=== PATIENT | male | born 1935 | race Caucasian/White ===

== ENCOUNTER 2017-10-28 05:48 | Emergency (ER) | payer MEDICARE, BC ==
[2017-10-28] MEDS ORDERED: methylPREDNISolone Sodium Succinate 125 MG/2 ML SDV IVPUSH STA (06:05)
--- NOTE | 2017-10-28 06:06 | EDM.PDOC ---
ED HPI GENERAL MEDICAL PROBLEM - General Stated Complaint: TROUBLE BREATHING Time Seen by Provider: 10/28/17 05:48 Source of Information: Reports: Patient, Family History Limitations: Reports: Respiratory Distress - History of Present Illness INITIAL COMMENTS - FREE TEXT/NARRATIVE: 82 y.o.w.m with a h/o COPD quit tobacco use 2010, came to the ed because of rapid change to the worse of his SOB. Pt can walk only across the hallway, then he kelley sto sit down to catch the breath. I was never intubated, he has a breathing machine at home and is using spiriva ihalers as well. Pt was walking only about 8 feet in the ed and his pulse ox dropped to 84% from 91% pulse ox at rest. No C/p no N/V/D or any other acute medical issues. BP 152/62 RR 28 Pulse ox 92% on RA temp 37.1 pulse 112 Onset: Gradual Onset Date: 10/24/17 Onset Time: 07:00 Duration: Day(s):, Getting Worse Location: Reports: Chest Quality: Reports: Same as Previous Episode Severity: Moderate Improves with: Reports: Medication, Rest Worsens with: Reports: Movement Context: Reports: Other (H/O COPD) Associated Symptoms: Reports: Cough (occ, nonproductive) - Related Data Allergies Allergy/AdvReac Type Severity Reaction Status Date / Time No Known Allergies Allergy Verified 10/28/17 06:51 Home Meds: Home Meds Albuterol [Proventil Neb Soln] 1 ampule INH QID PRN 10/28/17 [History] Aspirin 325 mg PO Q48H 10/28/17 [History] Brimonidine [Alphagan 0.2% Ophth Soln] 1 drop EYERT BID 10/28/17 [History] Latanoprost 1 drop EYERT BID 10/28/17 [History] predniSONE 20 mg PO WITHBREAKFAST #4 tab 10/28/17 [Rx] ED ROS GENERAL - Review of Systems Review Of Systems: See Below Constitutional: Reports: No Symptoms, Weakness HEENT: Reports: No Symptoms Respiratory: Reports: Shortness of Breath, Cough (occ) Cardiovascular: Reports: No Symptoms Endocrine: Reports: No Symptoms GI/Abdominal: Reports: No Symptoms, Other (abd. wall hernia, old) : Reports: No Symptoms Musculoskeletal: Reports: No Symptoms Skin: Reports: No Symptoms Neurological: Reports: No Symptoms Psychiatric: Reports: No Symptoms Hematologic/Lymphatic: Reports: No Symptoms Immunologic: Reports: No Symptoms ED EXAM, GENERAL - Physical Exam Exam: See Below Exam Limited By: Respiratory Distress General Appearance: Alert, WD/WN, Moderate Distress Eye Exam: Bilateral Eye: Normal Inspection Ears: Normal External Exam, Normal Canal Ear Exam: Bilateral Ear: Auricle Normal Nose: Normal Inspection, Normal Mucosa, No Blood Throat/Mouth: Normal Lips, Normal Voice, No Airway Compromise Head: Atraumatic, Normocephalic Neck: Normal Inspection, Supple, Non-Tender, Full Range of Motion Respiratory/Chest: Respiratory Distress, Decreased Breath Sounds, Other (Pulse ox drops to 84 when walking 8 feet) Cardiovascular: Normal Peripheral Pulses, Regular Rate, Rhythm, No Edema Peripheral Pulses: 1+: Brachial (L) GI/Abdominal: Normal Bowel Sounds, Soft, Non-Tender, Other (Abd. wall hernia, old) (Male) Exam: Hernia (abd. wall) Rectal (Males) Exam: Deferred Back Exam: Normal Inspection, Full Range of Motion Extremities: Normal Inspection, Normal Range of Motion, Non-Tender, No Pedal Edema Neurological: Alert, Oriented, CN II-XII Intact, Normal Cognition Psychiatric: Normal Affect, Normal Mood Skin Exam: Warm, Dry, Intact, Normal Color, No Rash Lymphatic: No Adenopathy Course - Vital Signs Text/Narrative:: 82 y.o.w.m with a h/o COPD quit tobacco use 2010, came to the ed because of rapid change to the worse of his SOB. Pt can walk only across the hallway, then he kelley sto sit down to catch the breath. I was never intubated, he has a breathing machine at home and is using spiriva ihalers as well. Pt was walking only about 8 feet in the ed and his pulse ox dropped to 84% from 91% pulse ox at rest. No C/p no N/V/D or any other acute medical issues. BP 152/62 RR 28 Pulse ox 92% on RA temp 37.1 pulse 112 PE: 82 y.o.w.m with COPD came to the ED with SOB Imaging: CXR: COPD Impression: COPD exacerbation Tx: Solu Medrol, Duoneb, Albuterol NebsX2 Reexam: Mild improvement. Pt refused furtherTx, refused admission and requested to be D/C'd Plan: D/C with instructions Last Recorded V/S: Last Vital Signs Temp 37.2 C 10/28/17 08:40 Pulse 106 H 10/28/17 08:40 Resp 20 10/28/17 08:40 BP 141/77 H 10/28/17 08:40 Pulse Ox 93 L 10/28/17 08:40 - Orders/Labs/Meds Orders: Active Orders 24 hr Category Date Time Status RT Aerosol Therapy [RC] ASDIRECTED Care 10/28/17 06:14 Active RT Aerosol Therapy [RC] ASDIRECTED Care 10/28/17 07:04 Active RT Aerosol Therapy [RC] ASDIRECTED Care 10/28/17 07:38 Active Chest 2V [CR] Stat Exams 10/28/17 06:44 Taken Meds: Medications Discontinued Medications Generic Name Dose Route Start Last Admin Trade Name Freq PRN Reason Stop Dose Admin Albuterol 2.5 mg 10/28/17 07:03 10/28/17 07[facility] [place] [facility] 07:04 2.5 mg ONETIME ONE Administration Albuterol 2.5 mg 10/28/17 07:38 10/28/17 07:52 Proventil Neb Soln [facility] 10/28/17 07:39 2.5 mg ONETIME ONE Administration Albuterol 2.5 mg 10/28/17 07:51 10/28/17 08:55 Proventil Neb Soln [facility] 10/28/17 07:52 Not Given ONETIME ONE Albuterol/Ipratropium 3 ml 10/28/17 06:14 10/28/17 06:21 Duoneb 3.0-0.5 Mg/3 Ml [facility] 10/28/17 06:15 3 ml ONETIME ONE Administration Ketorolac Tromethamine 15 mg 10/28/17 07:45 10/28/17 07:52 Toradol IVPUSH 10/28/17 07:46 15 mg ONETIME ONE Administration Methylprednisolone Sodium Succinate 125 mg 10/28/17 06:05 10/28/17 06:15 Solu-Medrol IVPUSH 10/28/17 06:06 125 mg ONETIME STA Administration Sodium Chloride 10 ml 10/28/17 06:19 10/28/17 07:58 Saline Flush FLUSH 10 ml ASDIRECTED PRN Administration Keep Vein Open Departure - Departure Time of Disposition: 08:35 Disposition: Home, Self-Care 01 Condition: Good, Fair 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 Qualifiers: Emphysema type: unspecified Qualified Code(s): J43.9 - Emphysema, unspecified - Discharge Information Prescriptions: predniSONE 20 mg PO WITHBREAKFAST #4 tab Instructions: Chronic Obstructive Pulmonary Disease, [id number], Prednisone tablets Referrals: PCP,Unknown [Ordering Only Provider] - Forms: ED Department Discharge Additional Instructions: Please continue to use your inhalers, take prednison as recommended, please f/u with your PMD in next 1-2 days, please come back if your symptoms get worse acutely - My Orders Last 24 Hours: My Active Orders 10/28/17 06:14 RT Aerosol Therapy [RC] ASDIRECTED 10/28/17 06:44 Chest 2V [CR] Stat 10/28/17 07:04 RT Aerosol Therapy [RC] ASDIRECTED 10/28/17 07:38 RT Aerosol Therapy [RC] ASDIRECTED - Assessment/Plan Last 24 Hours: My Active Orders 10/28/17 06:14 RT Aerosol Therapy [RC] ASDIRECTED 10/28/17 06:44 Chest 2V [CR] Stat 10/28/17 07:04 RT Aerosol Therapy [RC] ASDIRECTED 10/28/17 07:38 RT Aerosol Therapy [RC] ASDIRECTED
[2017-10-28] MEDS ORDERED: Albuterol/Ipratropium 3.0-0.5 MG/3 ML Neb Soln NEB ONE (06:14)
[2017-10-28] MEDS: Sodium Chloride 0.9% 10 ML Syringe FLUSH PRN ×2 (06:19→07:58)
[2017-10-28] MEDS ORDERED: Albuterol 0.083% 2.5 MG/3 ML Neb Soln NEB ONE ×3 (07:03→07:51)
[2017-10-28] MEDS ORDERED: Ketorolac 30 MG/ML SDV IVPUSH ONE (07:45)
--- NOTE | 2017-10-28 10:32 | CR ---
INDICATION: Short of breath. CHEST: Two PA views and a lateral view of the chest were obtained 10/28/2017 - no comparisons. Heart is normal in size and shape. The aorta is slightly tortuous with calcification in the arch. Somewhat diminished bone density may be present, raising question of osteoporosis or osteomalacia - correlate clinically. Hypertrophic degenerative changes are noted with a flowing appearance anteriorly, suggesting DISH. A minimal dextroconvex scoliosis of the upper middle thoracic spine is also noted. Overlying EKG leads are noted. Flattened diaphragm leaves, hyperaeration, and slightly prominent AP diameter would all suggest COPD, along with interdigitation of the right hemidiaphragm leaf. An active infiltrate or effusion was not identified. No evidence of CHF is seen. IMPRESSION: 1. No definite acute process. 2. COPD. 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 MTDD
== END 2017-10-28 08:50 | disposition home or self-care (01) ==
LOC: FB.ED 05:48
DX: J44.1 Chronic obstructive pulmonary disease with (acute) exacerbation (principal); Z79.82 Long term (current) use of aspirin; Z87.891 Personal history of nicotine dependence
CPT/HCPCS: 71046; 94640; 96374; 96375; 99284; J1885; J2930; J7050; J7620

== ENCOUNTER 2022-01-01 09:43 | Day surgery (SDC) | payer MEDICARE, BC ==
[~2022-01-01 09:43] MED LIST: Lactated Ringers 1,000 ML IV PRN; Sodium Chloride 0.9% 10 ML Syringe FLUSH PRN
[2022-01-01] MEDS ORDERED: Midazolam 1 MG/ML 2 ML SDV IV ONE (09:44)
[2022-01-01] MEDS ORDERED: fentaNYL 100 MCG/2 ML SDV IV ONE (09:44)
[2022-01-01] MEDS ORDERED: acetaZOLAMIDE 500 MG Cap.ER PO ONE (11:30)
== END 2022-01-01 12:20 | disposition home or self-care (01) ==
LOC: FB.SDS 09:43
PROVIDERS: ATTEND Ophthalmology
DX: H25.813 Combined forms of age-related cataract, bilateral (principal); H40.1111 Primary open-angle glaucoma, right eye, mild stage; H40.1112 Primary open-angle glaucoma, right eye, moderate stage; H35.3132 Nonexudative age-related macular degeneration, bilateral, intermediate dry stage; H43.813 Vitreous degeneration, bilateral; H52.03 Hypermetropia, bilateral; H52.223 Regular astigmatism, bilateral; G89.29 Other chronic pain; M25.562 Pain in left knee; L57.0 Actinic keratosis; I10 Essential (primary) hypertension; J43.8 Other emphysema; Z79.899 Other long term (current) drug therapy; Z87.891 Personal history of nicotine dependence
CPT/HCPCS: 00142; 66991; A9270; C1783; J2250; J3010; V2632

== ENCOUNTER 2022-01-15 09:13 | Day surgery (SDC) | payer MEDICARE, BC ==
[2022-01-15] MEDS ORDERED: fentaNYL 100 MCG/2 ML SDV IV ONE (09:14)
[2022-01-15] MEDS ORDERED: Midazolam 1 MG/ML 2 ML SDV IV ONE (09:14)
[2022-01-15] MEDS ORDERED: Sodium Chloride 0.9% 10 ML Syringe IV ONE (09:14)
[2022-01-15] MEDS ORDERED: acetaZOLAMIDE 500 MG Cap.ER PO ONE (11:00)
== END 2022-01-15 12:10 | disposition home or self-care (01) ==
LOC: FB.SDS 09:13
PROVIDERS: ATTEND Ophthalmology
DX: H25.813 Combined forms of age-related cataract, bilateral (principal); H40.1111 Primary open-angle glaucoma, right eye, mild stage; H40.1122 Primary open-angle glaucoma, left eye, moderate stage; H35.3132 Nonexudative age-related macular degeneration, bilateral, intermediate dry stage; H43.813 Vitreous degeneration, bilateral; H52.03 Hypermetropia, bilateral; H52.223 Regular astigmatism, bilateral; I10 Essential (primary) hypertension; L57.0 Actinic keratosis; J44.9 Chronic obstructive pulmonary disease, unspecified; Z79.899 Other long term (current) drug therapy; Z98.890 Other specified postprocedural states; Z87.891 Personal history of nicotine dependence
CPT/HCPCS: 00142-QZ; A9270-GY; C1783; J2250; J3010; J3490; V2632

== ENCOUNTER 2022-09-24 23:50 | Emergency (ER) | payer MEDICARE, BC ==
[2022-09-25] MEDS ORDERED: predniSONE 20 MG Tab PO STA (08:00)
[2022-09-25] MEDS ORDERED: Albuterol/Ipratropium 3.0-0.5 MG/3 ML Neb Soln NEB ONE (08:00)
== END 2022-09-25 10:35 | disposition home or self-care (01) ==
LOC: FB.ED 23:50
DX: J44.9 Chronic obstructive pulmonary disease, unspecified (principal); Z99.81 Dependence on supplemental oxygen
CPT/HCPCS: 71045; 99283; J7512; J7620

== ENCOUNTER 2022-10-07 10:53 | Inpatient (IN) | payer MEDICARE, BC ==
[2022-10-07] MEDS ORDERED: Sodium Chloride 0.9% 10 ML Syringe FLUSH PRN (11:35)
[2022-10-07 12:16] LABS: BASOPHILS ABSOLUTE AUTO 0.1 x10-3/uL (0.0-0.3); BASOPHILS PERCENT AUTO 0.5 % (0.3-3.8); EOSINOPHILS ABSOLUTE AUTO 0.3 x10-3/uL (0.0-0.6); EOSINOPHILS PERCENT AUTO 2.3 % (0.1-6.8); HEMOGLOBIN 14.4 g/dL (12.9-17.7); LYMPHOCYTES ABSOLUTE AUTO 1.1 x10-3/uL (0.5-4.5); LYMPHOCYTES PERCENT AUTO 7.8 % (15.8-45.3); MEAN CORPUSCULAR HEMOGLOBIN 32.4 pg (27.0-33.3); MEAN CORPUSCULAR HGB CONC 33.4 g/dL (28.7-35.3); MONOCYTES ABSOLUTE AUTO 0.7 x10-3/uL (0.0-1.2); MONOCYTES PERCENT AUTO 5.3 % (5.5-15.2); NEUTROPHILS ABSOLUTE AUTO 11.5 x10-3/uL (1.7-6.9); NEUTROPHILS PERCENT AUTO 84.1 % (40.3-71.8); PLATELET COUNT,PLT 341 x10(3)uL (117-477); RED BLOOD CELL COUNT 4.44 x10(6)uL (3.90-5.90); RED CELL DISTRIBUTION WIDTH 13.9 % (12.4-15.0); WHITE BLOOD CELL COUNT,WBC 13.7 x10-3/uL (3.2-10.1)
[2022-10-07 12:23] LABS: BLOOD UREA NITROGEN,BUN 40 mg/dL (7-18); BUN/CREATININE RATIO 23.5 (9-20); CALCIUM 9.5 mg/dL (8.6-10.2); CARBON DIOXIDE,CO2 31 mmol/L (21-32); CHLORIDE,CL 103 mmol/L (100-110); CREATININE 1.7 mg/dL (0.70-1.30); ESTIMATED GFR 39 mL/min (>60); GLUCOSE RANDOM 109 mg/dL (80-116); POTASSIUM,K 4.5 mmol/L (3.5-5.3); SODIUM,NA 141 mmol/L (135-145)
[2022-10-07 12:28] LABS: A/G RATIO 0.7; ALANINE AMINOTRANSFERASE,ALT 23 U/L (12-36); ALBUMIN 2.7 g/dL (3.2-4.6); ALKALINE PHOSPHATASE 122 IU/L (56-112); ASPARTATE AMNIOTRANSFERASE,AST 19 IU/L (5-25); BILIRUBIN TOTAL 0.5 mg/dL (0.1-1.3); PROTEIN TOTAL,TP 6.6 g/dL (6.0-8.0)
[2022-10-07 12:30] LABS: LACTIC ACID 0.5 mmol/L (0.4-2.0)
[2022-10-07] MEDS ORDERED: cefTRIAXone 2 GM Vial IVPUSH ONE (13:40)
[2022-10-07] MEDS ORDERED: Sodium Chloride 0.9% 1,000 ML IV SCH (14:00)
[2022-10-07] MEDS ORDERED: Iopamidol 755 Mg/ML 100 ML Bottle IV ONE (14:17)
[2022-10-07] MEDS ORDERED: Albuterol 0.083% 2.5 MG/3 ML Neb Soln INH PRN (15:54)
[2022-10-07] MEDS ORDERED: Albuterol 6.7 GM Inhaler INH PRN (16:19)
[2022-10-07] MEDS ORDERED: Enoxaparin 30 MG/0.3 ML Syringe SUBCUT SCH (17:00)
[2022-10-07] MEDS ORDERED: ceFAZolin 2 GM in Sodium Chloride 0.9% 50 ML IV SCH (17:00)
[2022-10-07] MEDS: Acetaminophen 325 MG Tab PO SCH ×2 (17:47→21:44)
[2022-10-07] MEDS: ceFAZolin 1 GM Vial IVPUSH SCH (17:48)
[2022-10-07] MEDS: Sodium Chloride 0.9% 10 ML Syringe FLUSH PRN (17:48)
[2022-10-07] MEDS: Budesonide 0.5 MG/2 ML Neb Susp INH SCH (21:33)
[2022-10-07] MEDS: Tiotropium Bromide 4 GM Inhalation Spray (2.5mcg/1 dose; 10 doses) INH SCH (21:35)
[2022-10-07] MEDS: Melatonin 3 MG Tab PO SCH (21:37)
[2022-10-08] MEDS: Acetaminophen 325 MG Tab PO PRN (03:00)
[2022-10-08] MEDS: ceFAZolin 1 GM Vial IVPUSH SCH ×2 (04:30→17:16)
[2022-10-08] MEDS: Sodium Chloride 0.9% 10 ML Syringe FLUSH PRN ×4 (04:35→17:15)
[2022-10-08 06:33] LABS: BASOPHILS ABSOLUTE AUTO 0.1 x10-3/uL (0.0-0.3); BASOPHILS PERCENT AUTO 0.6 % (0.3-3.8); EOSINOPHILS ABSOLUTE AUTO 0.2 x10-3/uL (0.0-0.6); EOSINOPHILS PERCENT AUTO 1.8 % (0.1-6.8); HEMATOCRIT 37.9 % (38.3-50.1); HEMOGLOBIN 12.4 g/dL (12.9-17.7); LYMPHOCYTES ABSOLUTE AUTO 0.9 x10-3/uL (0.5-4.5); LYMPHOCYTES PERCENT AUTO 6.8 % (15.8-45.3); MEAN CORPUSCULAR HGB CONC 32.8 g/dL (28.7-35.3); MEAN CORPUSCULAR VOLUME 97.6 fL (80.8-98.7); MEAN PLATELET VOLUME 7.1 fL (6.7-11.0); MONOCYTES ABSOLUTE AUTO 0.9 x10-3/uL (0.0-1.2); MONOCYTES PERCENT AUTO 6.7 % (5.5-15.2); NEUTROPHILS ABSOLUTE AUTO 10.8 x10-3/uL (1.7-6.9); NEUTROPHILS PERCENT AUTO 84.1 % (40.3-71.8); PLATELET COUNT,PLT 296 x10(3)uL (117-477); RED BLOOD CELL COUNT 3.88 x10(6)uL (3.90-5.90); RED CELL DISTRIBUTION WIDTH 13.5 % (12.4-15.0); WHITE BLOOD CELL COUNT,WBC 12.8 x10-3/uL (3.2-10.1)
[2022-10-08 06:37] LABS: BLOOD UREA NITROGEN,BUN 37 mg/dL (7-18); BUN/CREATININE RATIO 21.8 (9-20); CARBON DIOXIDE,CO2 31 mmol/L (21-32); CHLORIDE,CL 106 mmol/L (100-110); CREATININE 1.7 mg/dL (0.70-1.30); EST CRCL DRUG DOSING (CG) 27.13 mL/min; ESTIMATED GFR 39 mL/min (>60); GLUCOSE RANDOM 87 mg/dL (80-116); POTASSIUM,K 4.1 mmol/L (3.5-5.3); SODIUM,NA 143 mmol/L (135-145)
[2022-10-08] MEDS: Budesonide 0.5 MG/2 ML Neb Susp INH SCH ×2 (08:26→21:04)
[2022-10-08] MEDS: Multivitamin Tab PO SCH (08:26)
[2022-10-08] MEDS: Ascorbic Acid 500 MG Tab PO SCH (08:27)
[2022-10-08] MEDS: Cholecalciferol (Vitamin D3) 25 MCG Tab PO SCH (08:28)
[2022-10-08] MEDS: Acetaminophen 325 MG Tab PO SCH ×4 (08:29→21:05)
[2022-10-08] MEDS ORDERED: predniSONE 5 MG Tab PO SCH (09:00)
[2022-10-08] MEDS: Dexamethasone 4 MG Tab PO SCH (10:28)
[2022-10-08] MEDS ORDERED: Apixaban 5 MG Tab PO SCH ×2 (11:30)
[2022-10-08] MEDS: Sodium Chloride 0.9% 1,000 ML IV SCH (12:27)
[2022-10-08] MEDS ORDERED: Enoxaparin 30 MG/0.3 ML Syringe SUBCUT SCH (17:00)
[2022-10-08] MEDS: Melatonin 3 MG Tab PO SCH (21:04)
[2022-10-08] MEDS: Tiotropium Bromide 4 GM Inhalation Spray (2.5mcg/1 dose; 10 doses) INH SCH (21:05)
[2022-10-09] MEDS: Sodium Chloride 0.9% 1,000 ML IV SCH ×2 (01:35→18:35)
[2022-10-09] MEDS: ceFAZolin 1 GM Vial IVPUSH SCH (04:15)
[2022-10-09 06:22] LABS: BASOPHILS PERCENT AUTO 0.4 % (0.3-3.8); EOSINOPHILS PERCENT AUTO 0.5 % (0.1-6.8); HEMATOCRIT 35.3 % (38.3-50.1); HEMOGLOBIN 11.7 g/dL (12.9-17.7); LYMPHOCYTES ABSOLUTE AUTO 0.8 x10-3/uL (0.5-4.5); LYMPHOCYTES PERCENT AUTO 7.8 % (15.8-45.3); MEAN CORPUSCULAR HEMOGLOBIN 32.4 pg (27.0-33.3); MEAN CORPUSCULAR HGB CONC 33.2 g/dL (28.7-35.3); MEAN CORPUSCULAR VOLUME 97.6 fL (80.8-98.7); MEAN PLATELET VOLUME 7.4 fL (6.7-11.0); MONOCYTES ABSOLUTE AUTO 0.7 x10-3/uL (0.0-1.2); MONOCYTES PERCENT AUTO 7.3 % (5.5-15.2); NEUTROPHILS ABSOLUTE AUTO 8.6 x10-3/uL (1.7-6.9); PLATELET COUNT,PLT 258 x10(3)uL (117-477); RED BLOOD CELL COUNT 3.62 x10(6)uL (3.90-5.90); RED CELL DISTRIBUTION WIDTH 13.9 % (12.4-15.0); WHITE BLOOD CELL COUNT,WBC 10.2 x10-3/uL (3.2-10.1)
[2022-10-09 06:30] LABS: BLOOD UREA NITROGEN,BUN 35 mg/dL (7-18); BUN/CREATININE RATIO 20.6 (9-20); CALCIUM 8.6 mg/dL (8.6-10.2); CARBON DIOXIDE,CO2 29 mmol/L (21-32); CHLORIDE,CL 109 mmol/L (100-110); CREATININE 1.7 mg/dL (0.70-1.30); EST CRCL DRUG DOSING (CG) 27.13 mL/min; ESTIMATED GFR 39 mL/min (>60); GLUCOSE RANDOM 94 mg/dL (80-116); POTASSIUM,K 4.1 mmol/L (3.5-5.3); SODIUM,NA 144 mmol/L (135-145)
[2022-10-09] MEDS: Budesonide 0.5 MG/2 ML Neb Susp INH SCH ×2 (08:37→20:53)
[2022-10-09] MEDS: Dexamethasone 4 MG Tab PO SCH (08:38)
[2022-10-09] MEDS: Acetaminophen 325 MG Tab PO SCH ×4 (08:39→20:54)
[2022-10-09] MEDS: Ascorbic Acid 500 MG Tab PO SCH (08:39)
[2022-10-09] MEDS: Multivitamin Tab PO SCH (08:39)
[2022-10-09] MEDS: Cholecalciferol (Vitamin D3) 25 MCG Tab PO SCH (08:39)
[2022-10-09] MEDS: cefTRIAXone 2 GM Vial IVPUSH SCH (10:41)
[2022-10-09] MEDS: ACETYLCYSTEINE 600 MG PO SCH (10:42)
[2022-10-09] MEDS: [UNRECOGNIZED DRUG - OTHER] PO SCH (10:42)
[2022-10-09] MEDS: L-THEANINE PO SCH (10:43)
[2022-10-09] MEDS ORDERED: Iopamidol 755 Mg/ML 100 ML Bottle IV ONE (11:30)
[2022-10-09] MEDS: Albuterol 0.083% 2.5 MG/3 ML Neb Soln NEB PRN (13:55)
[2022-10-09] MEDS: Apixaban 5 MG Tab PO SCH (17:55)
[2022-10-09] MEDS: Saccharomyces Boulardii (Probiotic) 250 MG Cap PO SCH (20:53)
[2022-10-09] MEDS: Melatonin 3 MG Tab PO SCH (20:53)
[2022-10-09] MEDS: Tiotropium Bromide 4 GM Inhalation Spray (2.5mcg/1 dose; 10 doses) INH SCH (20:54)
[2022-10-10] MEDS: Acetaminophen 325 MG Tab PO PRN (04:19)
[2022-10-10 06:47] LABS: BASOPHILS ABSOLUTE AUTO 0.1 x10-3/uL (0.0-0.3); BASOPHILS PERCENT AUTO 0.7 % (0.3-3.8); EOSINOPHILS ABSOLUTE AUTO 0.1 x10-3/uL (0.0-0.6); EOSINOPHILS PERCENT AUTO 0.7 % (0.1-6.8); HEMATOCRIT 34.4 % (38.3-50.1); HEMOGLOBIN 11.4 g/dL (12.9-17.7); LYMPHOCYTES ABSOLUTE AUTO 0.9 x10-3/uL (0.5-4.5); MEAN CORPUSCULAR HEMOGLOBIN 32.7 pg (27.0-33.3); MEAN CORPUSCULAR HGB CONC 33.2 g/dL (28.7-35.3); MEAN CORPUSCULAR VOLUME 98.5 fL (80.8-98.7); MEAN PLATELET VOLUME 7.6 fL (6.7-11.0); MONOCYTES ABSOLUTE AUTO 0.8 x10-3/uL (0.0-1.2); MONOCYTES PERCENT AUTO 8.6 % (5.5-15.2); NEUTROPHILS ABSOLUTE AUTO 7.3 x10-3/uL (1.7-6.9); PLATELET COUNT,PLT 238 x10(3)uL (117-477); RED BLOOD CELL COUNT 3.49 x10(6)uL (3.90-5.90); RED CELL DISTRIBUTION WIDTH 14.1 % (12.4-15.0); WHITE BLOOD CELL COUNT,WBC 9.2 x10-3/uL (3.2-10.1)
[2022-10-10 06:53] LABS: BLOOD UREA NITROGEN,BUN 30 mg/dL (7-18); BUN/CREATININE RATIO 18.8 (9-20); CALCIUM 8.7 mg/dL (8.6-10.2); CARBON DIOXIDE,CO2 28 mmol/L (21-32); CHLORIDE,CL 111 mmol/L (100-110); CREATININE 1.6 mg/dL (0.70-1.30); EST CRCL DRUG DOSING (CG) 28.83 mL/min; ESTIMATED GFR 42 mL/min (>60); GLUCOSE RANDOM 89 mg/dL (80-116); POTASSIUM,K 4.1 mmol/L (3.5-5.3); SODIUM,NA 144 mmol/L (135-145)
[2022-10-10] MEDS: Albuterol 0.083% 2.5 MG/3 ML Neb Soln NEB PRN (07:20)
[2022-10-10] MEDS: Sodium Chloride 0.9% 1,000 ML IV SCH (07:21)
[2022-10-10] MEDS: Dexamethasone 4 MG Tab PO SCH (08:30)
[2022-10-10] MEDS: Apixaban 5 MG Tab PO SCH ×2 (08:31→20:02)
[2022-10-10] MEDS: Multivitamin Tab PO SCH (08:32)
[2022-10-10] MEDS: Saccharomyces Boulardii (Probiotic) 250 MG Cap PO SCH ×2 (08:32→20:03)
[2022-10-10] MEDS: Acetaminophen 325 MG Tab PO SCH ×4 (08:33→20:04)
[2022-10-10] MEDS: Ascorbic Acid 500 MG Tab PO SCH (08:33)
[2022-10-10] MEDS: Cholecalciferol (Vitamin D3) 25 MCG Tab PO SCH (08:34)
[2022-10-10] MEDS: L-THEANINE PO SCH (08:37)
[2022-10-10] MEDS: [UNRECOGNIZED DRUG - OTHER] PO SCH (08:38)
[2022-10-10] MEDS: ACETYLCYSTEINE 600 MG PO SCH (08:38)
[2022-10-10] MEDS: [UNRECOGNIZED DRUG - OTHER] PO SCH (08:38)
[2022-10-10] MEDS: Budesonide 0.5 MG/2 ML Neb Susp INH SCH ×2 (08:40→20:03)
[2022-10-10] MEDS: Sodium Chloride 0.9% 10 ML Syringe FLUSH PRN (09:02)
[2022-10-10] MEDS: cefTRIAXone 2 GM Vial IVPUSH SCH (09:02)
[2022-10-10] MEDS: Melatonin 3 MG Tab PO SCH (20:02)
[2022-10-10] MEDS: Tiotropium Bromide 4 GM Inhalation Spray (2.5mcg/1 dose; 10 doses) INH SCH (20:03)
[2022-10-10] MEDS ORDERED: VANCOmycin 1.5 GM/300 ML 300 ML IV ONE (23:45)
[2022-10-10] MEDS ORDERED: Levofloxacin 750 MG Tab PO SCH (23:45)
[2022-10-10] MEDS: Morphine 2 MG/ML SYRINGE IVPUSH PRN (23:53)
[2022-10-11] MEDS ORDERED: VANCOmycin 1.5 GM/300 ML 300 ML ONE (00:06)
[2022-10-11] MEDS: Morphine 2 MG/ML SYRINGE IVPUSH PRN (04:00)
[2022-10-11] MEDS: Albuterol 0.083% 2.5 MG/3 ML Neb Soln NEB PRN (05:55)
[2022-10-11 06:56] LABS: BASOPHILS ABSOLUTE AUTO 0.1 x10-3/uL (0.0-0.3); BASOPHILS PERCENT AUTO 0.6 % (0.3-3.8); EOSINOPHILS PERCENT AUTO 0.4 % (0.1-6.8); HEMATOCRIT 38.5 % (38.3-50.1); HEMOGLOBIN 12.6 g/dL (12.9-17.7); LYMPHOCYTES ABSOLUTE AUTO 1.7 x10-3/uL (0.5-4.5); LYMPHOCYTES PERCENT AUTO 14.6 % (15.8-45.3); MEAN CORPUSCULAR HEMOGLOBIN 32.2 pg (27.0-33.3); MEAN CORPUSCULAR HGB CONC 32.6 g/dL (28.7-35.3); MEAN CORPUSCULAR VOLUME 98.7 fL (80.8-98.7); MEAN PLATELET VOLUME 7.7 fL (6.7-11.0); MONOCYTES ABSOLUTE AUTO 0.9 x10-3/uL (0.0-1.2); MONOCYTES PERCENT AUTO 7.6 % (5.5-15.2); NEUTROPHILS ABSOLUTE AUTO 9.2 x10-3/uL (1.7-6.9); NEUTROPHILS PERCENT AUTO 76.8 % (40.3-71.8); PLATELET COUNT,PLT 295 x10(3)uL (117-477); RED CELL DISTRIBUTION WIDTH 13.6 % (12.4-15.0); WHITE BLOOD CELL COUNT,WBC 11.9 x10-3/uL (3.2-10.1)
[2022-10-11 06:59] LABS: BLOOD UREA NITROGEN,BUN 30 mg/dL (7-18); BUN/CREATININE RATIO 18.8 (9-20); CALCIUM 9.1 mg/dL (8.6-10.2); CARBON DIOXIDE,CO2 27 mmol/L (21-32); CHLORIDE,CL 106 mmol/L (100-110); CREATININE 1.6 mg/dL (0.70-1.30); EST CRCL DRUG DOSING (CG) 28.83 mL/min; ESTIMATED GFR 42 mL/min (>60); GLUCOSE RANDOM 85 mg/dL (80-116); POTASSIUM,K 4.5 mmol/L (3.5-5.3); SODIUM,NA 140 mmol/L (135-145)
[2022-10-11] MEDS: Budesonide 0.5 MG/2 ML Neb Susp INH SCH ×2 (08:55→20:44)
[2022-10-11] MEDS: [UNRECOGNIZED DRUG - OTHER] PO SCH (08:58)
[2022-10-11] MEDS: [UNRECOGNIZED DRUG - OTHER] PO SCH (08:58)
[2022-10-11] MEDS: Saccharomyces Boulardii (Probiotic) 250 MG Cap PO SCH ×2 (08:59→20:43)
[2022-10-11] MEDS: Dexamethasone 4 MG Tab PO SCH (08:59)
[2022-10-11] MEDS: Apixaban 5 MG Tab PO SCH ×2 (09:00→20:43)
[2022-10-11] MEDS: Multivitamin Tab PO SCH (09:00)
[2022-10-11] MEDS: Cholecalciferol (Vitamin D3) 25 MCG Tab PO SCH (09:00)
[2022-10-11] MEDS: Acetaminophen 325 MG Tab PO SCH ×4 (09:01→20:45)
[2022-10-11] MEDS: Ascorbic Acid 500 MG Tab PO SCH (09:02)
[2022-10-11] MEDS: L-THEANINE PO SCH (09:03)
[2022-10-11] MEDS: ACETYLCYSTEINE 600 MG PO SCH (09:04)
[2022-10-11] MEDS: cefTRIAXone 2 GM Vial IVPUSH SCH (10:49)
[2022-10-11] MEDS: Sodium Chloride 0.9% 10 ML Syringe FLUSH PRN (10:49)
[2022-10-11] MEDS ORDERED: VANCOmycin 1.25 GM/250 ML 1.25 GM in Premix Bag 1 BAG IV ONE (14:00)
[2022-10-11] MEDS: Melatonin 3 MG Tab PO SCH (20:44)
[2022-10-11] MEDS: Tiotropium Bromide 4 GM Inhalation Spray (2.5mcg/1 dose; 10 doses) INH SCH (20:45)
[2022-10-12] MEDS: Sodium Chloride 0.9% 10 ML Syringe FLUSH PRN ×4 (03:41→16:34)
[2022-10-12] MEDS: Morphine 2 MG/ML SYRINGE IVPUSH PRN (03:42)
[2022-10-12 06:36] LABS: BASOPHILS PERCENT AUTO 0.2 % (0.3-3.8); EOSINOPHILS PERCENT AUTO 0.2 % (0.1-6.8); HEMATOCRIT 40.1 % (38.3-50.1); LYMPHOCYTES ABSOLUTE AUTO 1.2 x10-3/uL (0.5-4.5); LYMPHOCYTES PERCENT AUTO 13.4 % (15.8-45.3); MEAN CORPUSCULAR HEMOGLOBIN 31.9 pg (27.0-33.3); MEAN CORPUSCULAR HGB CONC 32.5 g/dL (28.7-35.3); MEAN CORPUSCULAR VOLUME 98.2 fL (80.8-98.7); MEAN PLATELET VOLUME 7.6 fL (6.7-11.0); MONOCYTES ABSOLUTE AUTO 0.7 x10-3/uL (0.0-1.2); MONOCYTES PERCENT AUTO 7.6 % (5.5-15.2); NEUTROPHILS ABSOLUTE AUTO 7.1 x10-3/uL (1.7-6.9); NEUTROPHILS PERCENT AUTO 78.6 % (40.3-71.8); PLATELET COUNT,PLT 295 x10(3)uL (117-477); RED BLOOD CELL COUNT 4.08 x10(6)uL (3.90-5.90); WHITE BLOOD CELL COUNT,WBC 9.1 x10-3/uL (3.2-10.1)
[2022-10-12 06:44] LABS: BLOOD UREA NITROGEN,BUN 29 mg/dL (7-18); BUN/CREATININE RATIO 19.3 (9-20); CALCIUM 9.5 mg/dL (8.6-10.2); CARBON DIOXIDE,CO2 28 mmol/L (21-32); CHLORIDE,CL 107 mmol/L (100-110); CREATININE 1.5 mg/dL (0.70-1.30); EST CRCL DRUG DOSING (CG) 30.75 mL/min; ESTIMATED GFR 45 mL/min (>60); GLUCOSE RANDOM 83 mg/dL (80-116); POTASSIUM,K 4.5 mmol/L (3.5-5.3); SODIUM,NA 141 mmol/L (135-145)
[2022-10-12] MEDS: [UNRECOGNIZED DRUG - OTHER] PO SCH (09:17)
[2022-10-12] MEDS: [UNRECOGNIZED DRUG - OTHER] PO SCH (09:17)
[2022-10-12] MEDS: Saccharomyces Boulardii (Probiotic) 250 MG Cap PO SCH ×2 (09:18→21:12)
[2022-10-12] MEDS: Apixaban 5 MG Tab PO SCH ×2 (09:18→21:12)
[2022-10-12] MEDS: Multivitamin Tab PO SCH (09:19)
[2022-10-12] MEDS: Cholecalciferol (Vitamin D3) 25 MCG Tab PO SCH (09:20)
[2022-10-12] MEDS: Acetaminophen 325 MG Tab PO SCH ×4 (09:20→21:14)
[2022-10-12] MEDS: Budesonide 0.5 MG/2 ML Neb Susp INH SCH ×2 (09:22→21:13)
[2022-10-12] MEDS: cefTRIAXone 2 GM Vial IVPUSH SCH (09:30)
[2022-10-12] MEDS: ACETYLCYSTEINE 600 MG PO SCH (09:37)
[2022-10-12] MEDS: L-THEANINE PO SCH (09:37)
[2022-10-12] MEDS: Ascorbic Acid 500 MG Tab PO SCH (09:38)
[2022-10-12] MEDS: Dexamethasone 4 MG Tab PO SCH (10:00)
[2022-10-12 11:47] LABS: BILIRUBIN,URINE NEGATIVE (NEGATIVE); GLUCOSE,URINE NORMAL (NORMAL); KETONES,URINE NEGATIVE (NEGATIVE); LEUKOCYTE ESTERASE,URINE NEGATIVE (NEGATIVE); NITRITE,URINE NEGATIVE (NEGATIVE); OCCULT BLOOD,URINE LARGE (NEGATIVE); PROTEIN,URINE NEGATIVE (NEGATIVE); UROBILINOGEN,URINE NORMAL (NEGATIVE)
[2022-10-12 11:49] LABS: APPEARANCE,URINE CLEAR (CLEAR); BACTERIA,URINE FEW (NS); COLOR,URINE YELLOW (YELLOW); RBC,URINE >100 (0-5); SQUAMOUS EPITHELIAL CELLS,UR RARE (NS,R,O); WBC,URINE 0-5 (0-5)
[2022-10-12] MEDS: Melatonin 3 MG Tab PO SCH (21:12)
[2022-10-12] MEDS: Tiotropium Bromide 4 GM Inhalation Spray (2.5mcg/1 dose; 10 doses) INH SCH (21:13)
[2022-10-12] MEDS: Tamsulosin 0.4 MG Cap.ER PO SCH (21:18)
[2022-10-13] MEDS: Acetaminophen 325 MG Tab PO PRN (03:07)
[2022-10-13] MEDS: ACETYLCYSTEINE 600 MG PO SCH (08:32)
[2022-10-13] MEDS: Apixaban 5 MG Tab PO SCH ×2 (08:33→21:39)
[2022-10-13] MEDS: Saccharomyces Boulardii (Probiotic) 250 MG Cap PO SCH ×2 (08:33→21:41)
[2022-10-13] MEDS: [UNRECOGNIZED DRUG - OTHER] PO SCH (08:33)
[2022-10-13] MEDS: L-THEANINE PO SCH (08:33)
[2022-10-13] MEDS: [UNRECOGNIZED DRUG - OTHER] PO SCH (08:33)
[2022-10-13] MEDS: Multivitamin Tab PO SCH (08:34)
[2022-10-13] MEDS: Acetaminophen 325 MG Tab PO SCH ×4 (08:34→21:41)
[2022-10-13] MEDS: Cholecalciferol (Vitamin D3) 25 MCG Tab PO SCH (08:36)
[2022-10-13] MEDS: Ascorbic Acid 500 MG Tab PO SCH (08:36)
[2022-10-13] MEDS: Budesonide 0.5 MG/2 ML Neb Susp INH SCH ×2 (08:37→21:38)
[2022-10-13] MEDS: cefTRIAXone 2 GM Vial IVPUSH SCH (11:02)
[2022-10-13] MEDS: Sodium Chloride 0.9% 10 ML Syringe FLUSH PRN (11:02)
[2022-10-13] MEDS: Tiotropium Bromide 4 GM Inhalation Spray (2.5mcg/1 dose; 10 doses) INH SCH (21:39)
[2022-10-13] MEDS: Melatonin 3 MG Tab PO SCH (21:41)
[2022-10-13] MEDS: Tamsulosin 0.4 MG Cap.ER PO SCH (21:44)
[2022-10-14] MEDS: Multivitamin Tab PO SCH (09:16)
[2022-10-14] MEDS: Acetaminophen 325 MG Tab PO SCH ×4 (09:16→20:44)
[2022-10-14] MEDS: Ascorbic Acid 500 MG Tab PO SCH (09:18)
[2022-10-14] MEDS: Cholecalciferol (Vitamin D3) 25 MCG Tab PO SCH (09:19)
[2022-10-14] MEDS: Apixaban 5 MG Tab PO SCH ×2 (09:20→20:42)
[2022-10-14] MEDS: Saccharomyces Boulardii (Probiotic) 250 MG Cap PO SCH ×2 (09:21→20:43)
[2022-10-14] MEDS: [UNRECOGNIZED DRUG - OTHER] PO SCH (09:22)
[2022-10-14] MEDS: [UNRECOGNIZED DRUG - OTHER] PO SCH (09:22)
[2022-10-14] MEDS: ACETYLCYSTEINE 600 MG PO SCH (09:23)
[2022-10-14] MEDS: L-THEANINE PO SCH (09:23)
[2022-10-14] MEDS: Budesonide 0.5 MG/2 ML Neb Susp INH SCH ×2 (09:25→20:46)
[2022-10-14] MEDS: Sodium Chloride 0.9% 10 ML Syringe FLUSH PRN ×2 (10:25→15:49)
[2022-10-14] MEDS: cefTRIAXone 2 GM Vial IVPUSH SCH (10:26)
[2022-10-14] MEDS: Tamsulosin 0.4 MG Cap.ER PO SCH (20:43)
[2022-10-14] MEDS: Melatonin 3 MG Tab PO SCH (20:43)
[2022-10-14] MEDS: Tiotropium Bromide 4 GM Inhalation Spray (2.5mcg/1 dose; 10 doses) INH SCH (20:43)
[2022-10-15 06:41] LABS: BASOPHILS ABSOLUTE AUTO 0.1 x10-3/uL (0.0-0.3); BASOPHILS PERCENT AUTO 0.8 % (0.3-3.8); EOSINOPHILS ABSOLUTE AUTO 0.1 x10-3/uL (0.0-0.6); EOSINOPHILS PERCENT AUTO 1.9 % (0.1-6.8); HEMATOCRIT 37.3 % (38.3-50.1); HEMOGLOBIN 12.4 g/dL (12.9-17.7); LYMPHOCYTES ABSOLUTE AUTO 1.1 x10-3/uL (0.5-4.5); LYMPHOCYTES PERCENT AUTO 14.4 % (15.8-45.3); MEAN CORPUSCULAR HEMOGLOBIN 32.7 pg (27.0-33.3); MEAN CORPUSCULAR HGB CONC 33.3 g/dL (28.7-35.3); MEAN CORPUSCULAR VOLUME 98.2 fL (80.8-98.7); MEAN PLATELET VOLUME 7.5 fL (6.7-11.0); MONOCYTES ABSOLUTE AUTO 0.5 x10-3/uL (0.0-1.2); MONOCYTES PERCENT AUTO 6.5 % (5.5-15.2); NEUTROPHILS ABSOLUTE AUTO 5.9 x10-3/uL (1.7-6.9); NEUTROPHILS PERCENT AUTO 76.4 % (40.3-71.8); PLATELET COUNT,PLT 269 x10(3)uL (117-477); RED CELL DISTRIBUTION WIDTH 14.2 % (12.4-15.0); WHITE BLOOD CELL COUNT,WBC 7.7 x10-3/uL (3.2-10.1)
[2022-10-15 06:47] LABS: BLOOD UREA NITROGEN,BUN 22 mg/dL (7-18); BUN/CREATININE RATIO 15.7 (9-20); CALCIUM 9.3 mg/dL (8.6-10.2); CARBON DIOXIDE,CO2 28 mmol/L (21-32); CHLORIDE,CL 109 mmol/L (100-110); CREATININE 1.4 mg/dL (0.70-1.30); EST CRCL DRUG DOSING (CG) 32.95 mL/min; ESTIMATED GFR 49 mL/min (>60); GLUCOSE RANDOM 94 mg/dL (80-116); POTASSIUM,K 4.4 mmol/L (3.5-5.3); SODIUM,NA 144 mmol/L (135-145)
[2022-10-15] MEDS: L-THEANINE PO SCH (08:01)
[2022-10-15] MEDS: [UNRECOGNIZED DRUG - OTHER] PO SCH (08:02)
[2022-10-15] MEDS: ACETYLCYSTEINE 600 MG PO SCH (08:02)
[2022-10-15] MEDS: [UNRECOGNIZED DRUG - OTHER] PO SCH (08:02)
[2022-10-15] MEDS: Saccharomyces Boulardii (Probiotic) 250 MG Cap PO SCH (08:03)
[2022-10-15] MEDS: Apixaban 5 MG Tab PO SCH (08:03)
[2022-10-15] MEDS: Multivitamin Tab PO SCH (08:04)
[2022-10-15] MEDS: Acetaminophen 325 MG Tab PO SCH (08:04)
[2022-10-15] MEDS: Ascorbic Acid 500 MG Tab PO SCH (08:05)
[2022-10-15] MEDS: Cholecalciferol (Vitamin D3) 25 MCG Tab PO SCH (08:05)
[2022-10-15] MEDS: Budesonide 0.5 MG/2 ML Neb Susp INH SCH (08:23)
[2022-10-16] MEDS ORDERED: Apixaban 5 MG Tab PO SCH (21:00)
== END 2022-10-15 09:18 | disposition swing bed (61) | DRG 602 ==
LOC: FB.ED 10:53 → FB.MS 15:15
PROVIDERS: ADMIT Emergency Medicine; ATTEND Family Medicine
DX: L03.115 Cellulitis of right lower limb (principal); I26.99 Other pulmonary embolism without acute cor pulmonale; L03.116 Cellulitis of left lower limb; C61 Malignant neoplasm of prostate; J44.9 Chronic obstructive pulmonary disease, unspecified; H40.9 Unspecified glaucoma; I12.9 Hypertensive chronic kidney disease with stage 1 through stage 4 chronic kidney disease, or unspecified chronic kidney disease; N18.32 Chronic kidney disease, stage 3b; G47.00 Insomnia, unspecified; E04.1 Nontoxic single thyroid nodule; E78.5 Hyperlipidemia, unspecified; Z85.46 Personal history of malignant neoplasm of prostate; Z98.890 Other specified postprocedural states; E86.0 Dehydration; Z79.51 Long term (current) use of inhaled steroids; Z79.890 Hormone replacement therapy; N17.9 Acute kidney failure, unspecified; Z99.81 Dependence on supplemental oxygen; G47.33 Obstructive sleep apnea (adult) (pediatric); I89.0 Lymphedema, not elsewhere classified; I50.9 Heart failure, unspecified; Z87.891 Personal history of nicotine dependence; Z79.899 Other long term (current) drug therapy
CPT/HCPCS: 36415; 71045; 71275; 73701-50; 76536; 80048; 80053; 80202; 81001; 83605; 83735; 85025; 86140; 87040; 87070; 87077; 87205; 94640; 94669; 96361; 96374; 97110-GO; 97116-GP; 97161-GP; 97165-GO; 97530-GO; 97530-GP; 99222; 99232; 99239; 99285; 99285-25; A9270-GY; J0690; J0696; J1650; J2270; J3370; J3490; J7030; J7050; J8540; Q9967

== ENCOUNTER 2022-10-15 09:22 | Inpatient (IN) | payer MEDICARE, BC ==
[2022-10-15] MEDS ORDERED: Albuterol 0.083% 2.5 MG/3 ML Neb Soln INH PRN (09:34)
[2022-10-15] MEDS ORDERED: [UNRECOGNIZED DRUG - OTHER] PO SCH (09:45)
[2022-10-15] MEDS ORDERED: Albuterol 6.7 GM Inhaler INH PRN (10:05)
[2022-10-15] MEDS: Amoxicillin/Clavulanate K 875-125 MG Tab PO SCH ×2 (11:33→20:55)
[2022-10-15] MEDS: Acetaminophen 325 MG Tab PO PRN ×2 (16:01→20:57)
[2022-10-15] MEDS: Fish Oil/Omega-3 Fatty Acids 1 Gm Cap PO SCH (20:55)
[2022-10-15] MEDS: Tamsulosin 0.4 MG Cap.ER PO SCH (20:55)
[2022-10-15] MEDS: Apixaban 5 MG Tab PO SCH (20:55)
[2022-10-15] MEDS: Budesonide 0.5 MG/2 ML Neb Susp INH SCH (20:56)
[2022-10-15] MEDS: Tiotropium Bromide 4 GM Inhalation Spray (2.5mcg/1 dose; 10 doses) INH SCH (20:56)
[2022-10-15] MEDS: Melatonin 3 MG Tab PO SCH (20:56)
[2022-10-15] MEDS ORDERED: DIGESTIVE PO SCH (21:00)
[2022-10-15] MEDS ORDERED: S ADENOSYLMETHIONINE SUL TOSYL 400 MG PO SCH (21:00)
[2022-10-15] MEDS ORDERED: [UNRECOGNIZED DRUG - OTHER] PO SCH (21:00)
[2022-10-16] MEDS: Acetaminophen 325 MG Tab PO PRN ×4 (04:04→20:05)
[2022-10-16] MEDS: Fish Oil/Omega-3 Fatty Acids 1 Gm Cap PO SCH ×2 (08:02→20:04)
[2022-10-16] MEDS: Apixaban 5 MG Tab PO SCH ×2 (08:03→20:04)
[2022-10-16] MEDS: Ascorbic Acid 500 MG Tab PO SCH (08:03)
[2022-10-16] MEDS: Cholecalciferol (Vitamin D3) 25 MCG Tab PO SCH (08:05)
[2022-10-16] MEDS: Multivitamin Tab PO SCH (08:05)
[2022-10-16] MEDS: Amoxicillin/Clavulanate K 875-125 MG Tab PO SCH ×2 (08:05→20:04)
[2022-10-16] MEDS: [UNRECOGNIZED DRUG - OTHER] PO SCH (08:06)
[2022-10-16] MEDS: ACETYLCYSTEINE 600 MG PO SCH (08:06)
[2022-10-16] MEDS: THEANINE PO SCH (08:07)
[2022-10-16] MEDS: [UNRECOGNIZED DRUG - OTHER] PO SCH (08:07)
[2022-10-16] MEDS: Budesonide 0.5 MG/2 ML Neb Susp INH SCH ×2 (08:40→20:04)
[2022-10-16] MEDS ORDERED: [UNRECOGNIZED DRUG - MIXTURE] PO SCH (09:00)
[2022-10-16] MEDS ORDERED: [UNRECOGNIZED DRUG - OTHER] PO SCH (09:00)
[2022-10-16] MEDS ORDERED: Furosemide 20 MG Tab PO SCH (09:00)
[2022-10-16] MEDS ORDERED: LEVOCARNITINE TARTRATE 500 MG PO SCH (09:00)
[2022-10-16] MEDS ORDERED: GARLIC 500 MG PO SCH (09:00)
[2022-10-16] MEDS ORDERED: SERRAPEPTASE PO SCH (09:00)
[2022-10-16] MEDS ORDERED: [UNRECOGNIZED DRUG - OTHER] PO SCH (09:00)
[2022-10-16] MEDS ORDERED: ASHWAGANDHA ROOT EXTRACT 300 MG PO SCH (09:00)
[2022-10-16] MEDS ORDERED: [UNRECOGNIZED DRUG - OTHER] PO SCH (09:00)
[2022-10-16] MEDS ORDERED: [UNRECOGNIZED DRUG - OTHER] PO SCH (09:00)
[2022-10-16] MEDS ORDERED: ASTAXANTHIN 12 MG PO SCH (09:00)
[2022-10-16] MEDS ORDERED: [UNRECOGNIZED DRUG - OTHER] PO SCH (09:00)
[2022-10-16] MEDS ORDERED: [UNRECOGNIZED DRUG - OTHER] PO SCH (09:00)
[2022-10-16] MEDS ORDERED: Non-Formulary Medication 1 Each (Glucosam/Chond-Msm1/C/Mang/Bor [Glucosa-Chond-Msm Complex PO SCH (09:00)
[2022-10-16] MEDS: Tamsulosin 0.4 MG Cap.ER PO SCH (20:04)
[2022-10-16] MEDS: Melatonin 3 MG Tab PO SCH (20:05)
[2022-10-16] MEDS: Tiotropium Bromide 4 GM Inhalation Spray (2.5mcg/1 dose; 10 doses) INH SCH (20:05)
[2022-10-17] MEDS: Acetaminophen 325 MG Tab PO PRN (08:17)
[2022-10-17] MEDS: ACETYLCYSTEINE 600 MG PO SCH (08:18)
[2022-10-17] MEDS: Amoxicillin/Clavulanate K 875-125 MG Tab PO SCH ×2 (08:19→20:18)
[2022-10-17] MEDS: [UNRECOGNIZED DRUG - OTHER] PO SCH (08:20)
[2022-10-17] MEDS: [UNRECOGNIZED DRUG - OTHER] PO SCH (08:21)
[2022-10-17] MEDS: Fish Oil/Omega-3 Fatty Acids 1 Gm Cap PO SCH ×2 (08:21→20:17)
[2022-10-17] MEDS: Apixaban 5 MG Tab PO SCH ×2 (08:21→20:17)
[2022-10-17] MEDS: Multivitamin Tab PO SCH (08:22)
[2022-10-17] MEDS: THEANINE PO SCH (08:22)
[2022-10-17] MEDS: Cholecalciferol (Vitamin D3) 25 MCG Tab PO SCH (08:22)
[2022-10-17] MEDS: Ascorbic Acid 500 MG Tab PO SCH (08:23)
[2022-10-17] MEDS: Budesonide 0.5 MG/2 ML Neb Susp INH SCH ×2 (08:34→20:20)
[2022-10-17] MEDS: Melatonin 3 MG Tab PO SCH (20:18)
[2022-10-17] MEDS: Tamsulosin 0.4 MG Cap.ER PO SCH (20:18)
[2022-10-17] MEDS: Tiotropium Bromide 4 GM Inhalation Spray (2.5mcg/1 dose; 10 doses) INH SCH (20:18)
[2022-10-18] MEDS: Acetaminophen 325 MG Tab PO PRN (07:55)
[2022-10-18] MEDS: ACETYLCYSTEINE 600 MG PO SCH (09:10)
[2022-10-18] MEDS: [UNRECOGNIZED DRUG - OTHER] PO SCH (09:11)
[2022-10-18] MEDS: Amoxicillin/Clavulanate K 875-125 MG Tab PO SCH ×2 (09:11→20:32)
[2022-10-18] MEDS: [UNRECOGNIZED DRUG - OTHER] PO SCH (09:13)
[2022-10-18] MEDS: Fish Oil/Omega-3 Fatty Acids 1 Gm Cap PO SCH ×2 (09:13→20:32)
[2022-10-18] MEDS: Apixaban 5 MG Tab PO SCH ×2 (09:13→20:32)
[2022-10-18] MEDS: Budesonide 0.5 MG/2 ML Neb Susp INH SCH ×2 (09:14→20:32)
[2022-10-18] MEDS: Multivitamin Tab PO SCH (09:15)
[2022-10-18] MEDS: Cholecalciferol (Vitamin D3) 25 MCG Tab PO SCH (09:15)
[2022-10-18] MEDS: Ascorbic Acid 500 MG Tab PO SCH (09:15)
[2022-10-18] MEDS: THEANINE PO SCH (09:15)
[2022-10-18] MEDS: Tamsulosin 0.4 MG Cap.ER PO SCH (20:32)
[2022-10-18] MEDS: Melatonin 3 MG Tab PO SCH (20:32)
[2022-10-18] MEDS: Tiotropium Bromide 4 GM Inhalation Spray (2.5mcg/1 dose; 10 doses) INH SCH (20:32)
[2022-10-19] MEDS: Ascorbic Acid 500 MG Tab PO SCH (09:11)
[2022-10-19] MEDS: Multivitamin Tab PO SCH (09:11)
[2022-10-19] MEDS: Apixaban 5 MG Tab PO SCH ×2 (09:11→20:32)
[2022-10-19] MEDS: Fish Oil/Omega-3 Fatty Acids 1 Gm Cap PO SCH ×2 (09:12→20:32)
[2022-10-19] MEDS: Cholecalciferol (Vitamin D3) 25 MCG Tab PO SCH (09:12)
[2022-10-19] MEDS: Amoxicillin/Clavulanate K 875-125 MG Tab PO SCH ×2 (09:12→20:32)
[2022-10-19] MEDS: [UNRECOGNIZED DRUG - OTHER] PO SCH (09:12)
[2022-10-19] MEDS: [UNRECOGNIZED DRUG - OTHER] PO SCH (09:13)
[2022-10-19] MEDS: ACETYLCYSTEINE 600 MG PO SCH (09:13)
[2022-10-19] MEDS: THEANINE PO SCH (09:13)
[2022-10-19] MEDS: Budesonide 0.5 MG/2 ML Neb Susp INH SCH ×2 (09:20→20:31)
[2022-10-19] MEDS ORDERED: Polyethylene Glycol 3350 Powder 17 GM Packet PO ONE (12:38)
[2022-10-19] MEDS ORDERED: Sennosides/Docusate Sodium 50-8.6 MG Tab PO ONE (12:39)
[2022-10-19] MEDS: Tiotropium Bromide 4 GM Inhalation Spray (2.5mcg/1 dose; 10 doses) INH SCH (20:30)
[2022-10-19] MEDS: Tamsulosin 0.4 MG Cap.ER PO SCH (20:32)
[2022-10-19] MEDS: Melatonin 3 MG Tab PO SCH (20:32)
[2022-10-20] MEDS: Acetaminophen 325 MG Tab PO PRN ×2 (04:32→08:09)
[2022-10-20 07:53] LABS: BASOPHILS ABSOLUTE AUTO 0.1 x10-3/uL (0.0-0.3); BASOPHILS PERCENT AUTO 0.9 % (0.3-3.8); EOSINOPHILS ABSOLUTE AUTO 0.3 x10-3/uL (0.0-0.6); EOSINOPHILS PERCENT AUTO 3.9 % (0.1-6.8); HEMATOCRIT 32.7 % (38.3-50.1); HEMOGLOBIN 10.7 g/dL (12.9-17.7); LYMPHOCYTES PERCENT AUTO 15.4 % (15.8-45.3); MEAN CORPUSCULAR HEMOGLOBIN 32.6 pg (27.0-33.3); MEAN CORPUSCULAR HGB CONC 32.8 g/dL (28.7-35.3); MEAN CORPUSCULAR VOLUME 99.3 fL (80.8-98.7); MEAN PLATELET VOLUME 7.1 fL (6.7-11.0); MONOCYTES ABSOLUTE AUTO 0.6 x10-3/uL (0.0-1.2); MONOCYTES PERCENT AUTO 8.8 % (5.5-15.2); NEUTROPHILS ABSOLUTE AUTO 4.7 x10-3/uL (1.7-6.9); PLATELET COUNT,PLT 261 x10(3)uL (117-477); RED CELL DISTRIBUTION WIDTH 14.5 % (12.4-15.0); WHITE BLOOD CELL COUNT,WBC 6.7 x10-3/uL (3.2-10.1)
[2022-10-20 07:59] LABS: A/G RATIO 0.8; ALANINE AMINOTRANSFERASE,ALT 17 U/L (12-36); ALBUMIN 2.2 g/dL (3.2-4.6); ALKALINE PHOSPHATASE 69 IU/L (56-112); ASPARTATE AMNIOTRANSFERASE,AST 17 IU/L (5-25); BILIRUBIN TOTAL 0.4 mg/dL (0.1-1.3); BLOOD UREA NITROGEN,BUN 27 mg/dL (7-18); CALCIUM 8.9 mg/dL (8.6-10.2); CARBON DIOXIDE,CO2 32 mmol/L (21-32); CHLORIDE,CL 112 mmol/L (100-110); CREATININE 1.5 mg/dL (0.70-1.30); ESTIMATED GFR 45 mL/min (>60); GLUCOSE RANDOM 88 mg/dL (80-116); POTASSIUM,K 4.6 mmol/L (3.5-5.3); PROTEIN TOTAL,TP 4.9 g/dL (6.0-8.0); SODIUM,NA 146 mmol/L (135-145)
[2022-10-20] MEDS: ACETYLCYSTEINE 600 MG PO SCH (09:39)
[2022-10-20] MEDS: Amoxicillin/Clavulanate K 875-125 MG Tab PO SCH ×2 (09:40→20:31)
[2022-10-20] MEDS: [UNRECOGNIZED DRUG - OTHER] PO SCH (09:40)
[2022-10-20] MEDS: [UNRECOGNIZED DRUG - OTHER] PO SCH (09:41)
[2022-10-20] MEDS: Apixaban 5 MG Tab PO SCH ×2 (09:41→20:31)
[2022-10-20] MEDS: Fish Oil/Omega-3 Fatty Acids 1 Gm Cap PO SCH ×2 (09:41→20:31)
[2022-10-20] MEDS: Budesonide 0.5 MG/2 ML Neb Susp INH SCH ×2 (09:42→20:32)
[2022-10-20] MEDS: Multivitamin Tab PO SCH (09:42)
[2022-10-20] MEDS: THEANINE PO SCH (09:42)
[2022-10-20] MEDS: Cholecalciferol (Vitamin D3) 25 MCG Tab PO SCH (09:43)
[2022-10-20] MEDS: Ascorbic Acid 500 MG Tab PO SCH (09:43)
[2022-10-20] MEDS: Tamsulosin 0.4 MG Cap.ER PO SCH (20:31)
[2022-10-20] MEDS: Tiotropium Bromide 4 GM Inhalation Spray (2.5mcg/1 dose; 10 doses) INH SCH (20:31)
[2022-10-20] MEDS: Melatonin 3 MG Tab PO SCH (20:31)
[2022-10-21] MEDS: Acetaminophen 325 MG Tab PO PRN ×2 (00:01→09:59)
[2022-10-21] MEDS: Ascorbic Acid 500 MG Tab PO SCH (09:54)
[2022-10-21] MEDS: Multivitamin Tab PO SCH (09:54)
[2022-10-21] MEDS: Apixaban 5 MG Tab PO SCH (09:54)
[2022-10-21] MEDS: Cholecalciferol (Vitamin D3) 25 MCG Tab PO SCH (09:54)
[2022-10-21] MEDS: Fish Oil/Omega-3 Fatty Acids 1 Gm Cap PO SCH (09:54)
[2022-10-21] MEDS: [UNRECOGNIZED DRUG - OTHER] PO SCH (09:55)
[2022-10-21] MEDS: ACETYLCYSTEINE 600 MG PO SCH (09:55)
[2022-10-21] MEDS: THEANINE PO SCH (09:56)
[2022-10-21] MEDS: [UNRECOGNIZED DRUG - OTHER] PO SCH (09:56)
[2022-10-21] MEDS: Budesonide 0.5 MG/2 ML Neb Susp INH SCH (09:57)
== END 2022-10-21 13:57 | disposition home health service (06) | DRG 948 ==
LOC: FB.MS 09:23
PROVIDERS: ADMIT Family Medicine; ATTEND Student in an Organized Health Care Education/Training Program
DX: R53.1 Weakness (principal); L03.116 Cellulitis of left lower limb; I27.82 Chronic pulmonary embolism; I13.0 Hypertensive heart and chronic kidney disease with heart failure and stage 1 through stage 4 chronic kidney disease, or unspecified chronic kidney disease; L97.822 Non-pressure chronic ulcer of other part of left lower leg with fat layer exposed; L97.812 Non-pressure chronic ulcer of other part of right lower leg with fat layer exposed; L03.115 Cellulitis of right lower limb; J43.9 Emphysema, unspecified; G47.33 Obstructive sleep apnea (adult) (pediatric); N18.32 Chronic kidney disease, stage 3b; E04.1 Nontoxic single thyroid nodule; Z99.81 Dependence on supplemental oxygen; C61 Malignant neoplasm of prostate; I50.9 Heart failure, unspecified; K42.9 Umbilical hernia without obstruction or gangrene; R91.1 Solitary pulmonary nodule; R26.9 Unspecified abnormalities of gait and mobility; Z98.49 Cataract extraction status, unspecified eye; E78.5 Hyperlipidemia, unspecified; G47.00 Insomnia, unspecified; Z87.891 Personal history of nicotine dependence; Z79.02 Long term (current) use of antithrombotics/antiplatelets; Z88.8 Allergy status to other drugs, medicaments and biological substances; Z79.899 Other long term (current) drug therapy
CPT/HCPCS: 36415; 80053; 85025; 93010; 94640; 97116-GP; 97530-GO; 97530-GP; 97535-GO; 99305; 99308; 99316; A9270-GY

== ENCOUNTER 2022-11-03 12:24 | Emergency (ER) | payer MEDICARE, BC ==
[2022-11-03 13:36] LABS: BASOPHILS PERCENT AUTO 0.5 % (0.3-3.8); EOSINOPHILS ABSOLUTE AUTO 0.1 x10-3/uL (0.0-0.6); EOSINOPHILS PERCENT AUTO 1.4 % (0.1-6.8); HEMATOCRIT 38.2 % (38.3-50.1); HEMOGLOBIN 12.5 g/dL (12.9-17.7); LYMPHOCYTES ABSOLUTE AUTO 1.1 x10-3/uL (0.5-4.5); LYMPHOCYTES PERCENT AUTO 14.9 % (15.8-45.3); MEAN CORPUSCULAR HEMOGLOBIN 32.7 pg (27.0-33.3); MEAN CORPUSCULAR HGB CONC 32.8 g/dL (28.7-35.3); MEAN CORPUSCULAR VOLUME 99.7 fL (80.8-98.7); MEAN PLATELET VOLUME 7.3 fL (6.7-11.0); MONOCYTES ABSOLUTE AUTO 0.6 x10-3/uL (0.0-1.2); MONOCYTES PERCENT AUTO 7.7 % (5.5-15.2); NEUTROPHILS ABSOLUTE AUTO 5.6 x10-3/uL (1.7-6.9); NEUTROPHILS PERCENT AUTO 75.5 % (40.3-71.8); PLATELET COUNT,PLT 277 x10(3)uL (117-477); RED BLOOD CELL COUNT 3.83 x10(6)uL (3.90-5.90); RED CELL DISTRIBUTION WIDTH 15.4 % (12.4-15.0); WHITE BLOOD CELL COUNT,WBC 7.4 x10-3/uL (3.2-10.1)
[2022-11-03 13:40] LABS: BLOOD UREA NITROGEN,BUN 35 mg/dL (7-18); BUN/CREATININE RATIO 21.9 (9-20); CALCIUM 9.5 mg/dL (8.6-10.2); CARBON DIOXIDE,CO2 34 mmol/L (21-32); CHLORIDE,CL 105 mmol/L (100-110); CREATININE 1.6 mg/dL (0.70-1.30); ESTIMATED GFR 42 mL/min (>60); GLUCOSE RANDOM 106 mg/dL (80-116); POTASSIUM,K 4.3 mmol/L (3.5-5.3); SODIUM,NA 145 mmol/L (135-145)
[2022-11-03 13:46] LABS: A/G RATIO 0.9; ALANINE AMINOTRANSFERASE,ALT 27 U/L (12-36); ALBUMIN 2.9 g/dL (3.2-4.6); ALKALINE PHOSPHATASE 89 IU/L (56-112); ASPARTATE AMNIOTRANSFERASE,AST 22 IU/L (5-25); BILIRUBIN TOTAL 0.5 mg/dL (0.1-1.3); PROTEIN TOTAL,TP 6.2 g/dL (6.0-8.0)
[2022-11-03] MEDS ORDERED: cefTRIAXone 1 GM Vial IM ONE (14:29)
== END 2022-11-03 15:10 | disposition home or self-care (01) ==
LOC: FB.ED 12:24
DX: L03.113 Cellulitis of right upper limb (principal); I50.9 Heart failure, unspecified; J44.9 Chronic obstructive pulmonary disease, unspecified; Z88.8 Allergy status to other drugs, medicaments and biological substances; Z79.899 Other long term (current) drug therapy
CPT/HCPCS: 36415; 80053; 85025; 86140; 96372; 99283; J0696

== ENCOUNTER 2023-01-21 07:45 | Emergency (ER) | payer MEDICARE, BC ==
[2023-01-21 08:24] LABS: BASOPHILS PERCENT AUTO 0.4 % (0.3-3.8); EOSINOPHILS ABSOLUTE AUTO 0.1 x10-3/uL (0.0-0.6); EOSINOPHILS PERCENT AUTO 1.2 % (0.1-6.8); HEMATOCRIT 38.9 % (38.3-50.1); HEMOGLOBIN 12.9 g/dL (12.9-17.7); LYMPHOCYTES ABSOLUTE AUTO 1.7 x10-3/uL (0.5-4.5); LYMPHOCYTES PERCENT AUTO 23.3 % (15.8-45.3); MEAN CORPUSCULAR HEMOGLOBIN 31.9 pg (27.0-33.3); MEAN CORPUSCULAR HGB CONC 33.1 g/dL (28.7-35.3); MEAN CORPUSCULAR VOLUME 96.3 fL (80.8-98.7); MEAN PLATELET VOLUME 7.8 fL (6.7-11.0); MONOCYTES ABSOLUTE AUTO 0.6 x10-3/uL (0.0-1.2); MONOCYTES PERCENT AUTO 8.8 % (5.5-15.2); NEUTROPHILS ABSOLUTE AUTO 4.8 x10-3/uL (1.7-6.9); NEUTROPHILS PERCENT AUTO 66.3 % (40.3-71.8); PLATELET COUNT,PLT 254 x10(3)uL (117-477); RED BLOOD CELL COUNT 4.04 x10(6)uL (3.90-5.90); RED CELL DISTRIBUTION WIDTH 14.4 % (12.4-15.0); WHITE BLOOD CELL COUNT,WBC 7.2 x10-3/uL (3.2-10.1)
[2023-01-21 08:25] LABS: BLOOD UREA NITROGEN,BUN 41 mg/dL (7-18); BUN/CREATININE RATIO 25.6 (9-20); CALCIUM 10.1 mg/dL (8.6-10.2); CARBON DIOXIDE,CO2 32 mmol/L (21-32); CHLORIDE,CL 108 mmol/L (100-110); CREATININE 1.6 mg/dL (0.70-1.30); EST CRCL DRUG DOSING (CG) 30.98 mL/min; ESTIMATED GFR 42 mL/min (>60); GLUCOSE RANDOM 91 mg/dL (80-116); SODIUM,NA 145 mmol/L (135-145)
[2023-01-21 08:31] LABS: A/G RATIO 0.8; ALANINE AMINOTRANSFERASE,ALT 19 U/L (12-36); ALBUMIN 2.8 g/dL (3.2-4.6); ALKALINE PHOSPHATASE 109 IU/L (56-112); ASPARTATE AMNIOTRANSFERASE,AST 14 IU/L (5-25); BILIRUBIN TOTAL 0.3 mg/dL (0.1-1.3); INR 0.97 (1.00-1.24); PROTEIN TOTAL,TP 6.3 g/dL (6.0-8.0)
[2023-01-21 08:35] LABS: PTT,PARTIAL THROMBOPLSTIN TIME 28.6 SECONDS (24.4-33.2)
== END 2023-01-21 10:08 | disposition home or self-care (01) ==
LOC: FB.ED 07:45
DX: S09.90XA Unspecified injury of head, initial encounter (principal); E86.0 Dehydration; J44.9 Chronic obstructive pulmonary disease, unspecified; Z87.891 Personal history of nicotine dependence; Z79.01 Long term (current) use of anticoagulants; Z95.5 Presence of coronary angioplasty implant and graft; Z79.899 Other long term (current) drug therapy; Z88.8 Allergy status to other drugs, medicaments and biological substances; W06.XXXA Fall from bed, initial encounter; Y92.009 Unspecified place in unspecified non-institutional (private) residence as the place of occurrence of the external cause
CPT/HCPCS: 36415; 70450; 73090-LT; 80053; 85025; 85610; 85730; 99284

== ENCOUNTER 2024-01-13 18:59 | Inpatient (IN) | payer MEDICARE, BC ==
[2024-01-13 19:38] LABS: BASOPHILS PERCENT AUTO 0.4 % (0.3-3.8); HEMATOCRIT 42.4 % (38.3-50.1); HEMOGLOBIN 14.2 g/dL (12.9-17.7); LYMPHOCYTES ABSOLUTE AUTO 0.5 x10-3/uL (0.5-4.5); MEAN CORPUSCULAR HEMOGLOBIN 31.9 pg (27.0-33.3); MEAN CORPUSCULAR HGB CONC 33.4 g/dL (28.7-35.3); MEAN CORPUSCULAR VOLUME 95.4 fL (80.8-98.7); MEAN PLATELET VOLUME 7.7 fL (6.7-11.0); MONOCYTES ABSOLUTE AUTO 0.8 x10-3/uL (0.0-1.2); MONOCYTES PERCENT AUTO 10.1 % (5.5-15.2); NEUTROPHILS ABSOLUTE AUTO 6.6 x10-3/uL (1.7-6.9); NEUTROPHILS PERCENT AUTO 83.5 % (40.3-71.8); PLATELET COUNT,PLT 238 x10(3)uL (117-477); RED BLOOD CELL COUNT 4.44 x10(6)uL (3.90-5.90)
[2024-01-13 19:41] LABS: BLOOD UREA NITROGEN,BUN 44 mg/dL (7-18); BUN/CREATININE RATIO 25.9 (9-20); CALCIUM 9.5 mg/dL (8.6-10.2); CARBON DIOXIDE,CO2 29 mmol/L (21-32); CHLORIDE,CL 108 mmol/L (100-110); CREATININE 1.7 mg/dL (0.70-1.30); EST CRCL DRUG DOSING (CG) 27.63 mL/min; ESTIMATED GFR 39 mL/min (>60); GLUCOSE RANDOM 100 mg/dL (80-116); POTASSIUM,K 4.6 mmol/L (3.5-5.3); SODIUM,NA 144 mmol/L (135-145)
[2024-01-13 19:47] LABS: A/G RATIO 0.8; ALANINE AMINOTRANSFERASE,ALT 13 U/L (12-36); ALKALINE PHOSPHATASE 126 IU/L (56-112); ASPARTATE AMNIOTRANSFERASE,AST 18 IU/L (5-25); BILIRUBIN TOTAL 0.4 mg/dL (0.1-1.3); PROTEIN TOTAL,TP 6.8 g/dL (6.0-8.0)
[2024-01-13 19:55] LABS: TROPONIN I 51.5 pg/mL (4.0-60.3)
[2024-01-13] MEDS: Piperacillin/Tazobactam 4.5 GM in Sodium Chloride 0.9% 100 ML IV ONE (19:58)
[2024-01-13] MEDS: Acetaminophen 325 MG Tab PO ONE (20:08)
[2024-01-13] MEDS ORDERED: Dexamethasone 4 MG/ML SDV IVPUSH ONE (20:12)
[2024-01-13] MEDS ORDERED: Albuterol/Ipratropium 3.0-0.5 MG/3 ML Neb Soln INH PRN (20:13)
[2024-01-13] MEDS ORDERED: Ondansetron 4 MG/2 ML SDV IV PRN (20:13)
[2024-01-13] MEDS ORDERED: Enoxaparin 40 MG/0.4 ML Syringe SUBCUT SCH (20:15)
[2024-01-13 20:17] LABS: BILIRUBIN,URINE NEGATIVE (NEGATIVE); GLUCOSE,URINE NORMAL (NORMAL); KETONES,URINE NEGATIVE (NEGATIVE); LEUKOCYTE ESTERASE,URINE NEGATIVE (NEGATIVE); NITRITE,URINE NEGATIVE (NEGATIVE); OCCULT BLOOD,URINE MODERATE (NEGATIVE); PROTEIN,URINE 30 mg/dL (NEGATIVE); UROBILINOGEN,URINE NORMAL (NEGATIVE)
[2024-01-13] MEDS: Sodium Chloride 0.9% 1,000 ML IV SCH (20:18)
[2024-01-13 20:19] LABS: APPEARANCE,URINE CLEAR (CLEAR); BACTERIA,URINE RARE (NS); COLOR,URINE YELLOW (YELLOW); RBC,URINE 0-5 (0-5); SQUAMOUS EPITHELIAL CELLS,UR OCCASIONAL (NS,R,O); WBC,URINE 0-5 (0-5)
[2024-01-13 20:48] LABS: LACTIC ACID 1.4 mmol/L (0.4-2.0)
[2024-01-13] MEDS ORDERED: Nirmatrelvir/Ritonavir 150 MG/100 MG Dose Pack (Renal Dose) PO SCH (21:00)
[2024-01-13] MEDS: Nirmatrelvir/Ritonavir 150 MG/100 MG Dose Pack (Renal Dose) PO SCH (21:50)
[2024-01-13] MEDS: Enoxaparin 30 MG/0.3 ML Syringe SUBCUT SCH (21:50)
[2024-01-14] MEDS: Acetaminophen 325 MG Tab PO PRN (04:27)
[2024-01-14 06:54] LABS: HEMATOCRIT 36.5 % (38.3-50.1); MEAN CORPUSCULAR HEMOGLOBIN 31.8 pg (27.0-33.3); MEAN CORPUSCULAR HGB CONC 32.8 g/dL (28.7-35.3); MEAN PLATELET VOLUME 7.5 fL (6.7-11.0); PLATELET COUNT,PLT 199 x10(3)uL (117-477); RED BLOOD CELL COUNT 3.76 x10(6)uL (3.90-5.90); RED CELL DISTRIBUTION WIDTH 15.1 % (12.4-15.0); WHITE BLOOD CELL COUNT,WBC 4.8 x10-3/uL (3.2-10.1)
[2024-01-14 07:04] LABS: A/G RATIO 0.7; ALANINE AMINOTRANSFERASE,ALT 12 U/L (12-36); ALBUMIN 2.2 g/dL (3.2-4.6); ALKALINE PHOSPHATASE 93 IU/L (56-112); ASPARTATE AMNIOTRANSFERASE,AST 18 IU/L (5-25); BILIRUBIN TOTAL 0.4 mg/dL (0.1-1.3); BLOOD UREA NITROGEN,BUN 41 mg/dL (7-18); BUN/CREATININE RATIO 24.1 (9-20); CALCIUM 8.8 mg/dL (8.6-10.2); CARBON DIOXIDE,CO2 28 mmol/L (21-32); CHLORIDE,CL 111 mmol/L (100-110); CREATININE 1.7 mg/dL (0.70-1.30); EST CRCL DRUG DOSING (CG) 27.63 mL/min; ESTIMATED GFR 39 mL/min (>60); GLUCOSE RANDOM 83 mg/dL (80-116); MAGNESIUM 1.8 mg/dL (1.8-2.5); POTASSIUM,K 3.9 mmol/L (3.5-5.3); PROTEIN TOTAL,TP 5.3 g/dL (6.0-8.0); SODIUM,NA 145 mmol/L (135-145)
[2024-01-14 07:15] LABS: LYMPHOCYTES PERCENT MAN 9 % (13-37); MONOCYTES PERCENT MAN 14 % (4-12); SEG NEUTROPHILS PERCENT MAN 77 % (46-82)
[2024-01-14 07:16] LABS: ANISOCYTOSIS FEW
[2024-01-14] MEDS: Enoxaparin 30 MG/0.3 ML Syringe SUBCUT SCH (10:51)
[2024-01-14] MEDS ORDERED: cefTRIAXone 2 GM in Sodium Chloride 0.9% 50 ML IV SCH (11:30)
[2024-01-14] MEDS: Dexamethasone 4 MG/ML SDV IVPUSH SCH (12:30)
[2024-01-14] MEDS: Sodium Chloride 0.9% 10 ML Syringe FLUSH PRN (12:31)
[2024-01-14] MEDS: cefTRIAXone 2 GM Vial IVPUSH SCH (12:32)
[2024-01-14] MEDS: Heparin Sodium/0.45% NaCl 25,000 UNITS/500 ML BAG IV SCH (12:33)
[2024-01-14] MEDS: Iopamidol 755 Mg/ML 100 ML Bottle IV SCH (12:35)
[2024-01-14] MEDS: Azithromycin 500 MG in Sodium Chloride 0.9% 250 ML IV SCH (12:37)
[2024-01-14 13:19] LABS: AMPHETAMINES SCREEN, URINE NEGATIVE (NEGATIVE); BARBITURATE SCREEN,URINE NEGATIVE (NEGATIVE); BENZODIAZEPINES SCREEN,URINE NEGATIVE (NEGATIVE); METHADONE SCREEN, URINE NEGATIVE (NEGATIVE); METHAMPHETAMINE SCREEN, URINE NEGATIVE (NEGATIVE); OXYCODONE SCREEN,URINE NEGATIVE (NEGATIVE); THC SCREEN,URINE NEGATIVE (NEGATIVE)
[2024-01-14 13:20] LABS: BUPRENORPHINE SCREEN,URINE NEGATIVE (NEGATIVE)
[2024-01-14] MEDS ORDERED: metroNIDAZOLE/Normal Saline 500 MG in Premix Bag 1 BAG IV STA (17:28)
== END 2024-01-14 18:18 | DRG 177 ==
LOC: FB.ED 18:59 → FB.MS 20:40
PROVIDERS: ADMIT Family Medicine; ATTEND Internal Medicine
PROC: 8E0ZXY6 Isolation (ICD-10-PCS; principal; 2024-01-14)
PROC: 3E0333Z Introduction of Anti-inflammatory into Peripheral Vein, Percutaneous Approach (ICD-10-PCS; 2024-01-14)
DX: U07.1 COVID-19 (principal); I21.4 Non-ST elevation (NSTEMI) myocardial infarction; J18.9 Pneumonia, unspecified organism; J96.01 Acute respiratory failure with hypoxia; J44.0 Chronic obstructive pulmonary disease with (acute) lower respiratory infection; I48.91 Unspecified atrial fibrillation; J43.9 Emphysema, unspecified; H40.9 Unspecified glaucoma; G47.33 Obstructive sleep apnea (adult) (pediatric); Z88.8 Allergy status to other drugs, medicaments and biological substances; Z90.79 Acquired absence of other genital organ(s); Z98.49 Cataract extraction status, unspecified eye; Z99.81 Dependence on supplemental oxygen; Z79.899 Other long term (current) drug therapy
CPT/HCPCS: 36415; 70450; 71045; 71275; 80053; 80307; 81001; 83605; 83735; 83880; 84484; 85025; 85730; 86140; 87040; 93005; 93010; 94150; 96374; 99223; 99238; 99285; 99285-25; A9270-GY; J0456; J0696; J1100; J1644; J1650; J2543; J3490; J7030; J7050; Q9967; U0002

== ENCOUNTER 2024-05-04 09:21 | Inpatient (IN) | payer MEDICARE, BC ==
[2024-05-04] MEDS ORDERED: Albuterol 6.7 GM Inhaler INH PRN (09:41)
[2024-05-04] MEDS: amLODIPine 5 MG Tab PO SCH (10:54)
[2024-05-04] MEDS: TURMERIC CURCUMIN PO SCH (11:42)
[2024-05-04] MEDS: MACUHEALTH PO SCH (11:42)
[2024-05-04] MEDS: [UNRECOGNIZED DRUG - OTHER] PO SCH (17:38)
[2024-05-04] MEDS: Tamsulosin 0.4 MG Cap.ER PO SCH (20:06)
[2024-05-04] MEDS: Budesonide 0.5 MG/2 ML Neb Susp INH SCH (20:06)
[2024-05-05] MEDS: Tiotropium Bromide 4 GM Inhalation Spray (2.5mcg/1 dose; 10 doses) INH SCH (09:03)
[2024-05-05] MEDS: [UNRECOGNIZED DRUG - OTHER] PO SCH (09:03)
[2024-05-05 10:07] LABS: BASOPHILS PERCENT AUTO 0.3 % (0.3-3.8); EOSINOPHILS ABSOLUTE AUTO 0.1 x10-3/uL (0.0-0.6); EOSINOPHILS PERCENT AUTO 2.6 % (0.1-6.8); LYMPHOCYTES PERCENT AUTO 22.1 % (15.8-45.3); MEAN CORPUSCULAR HEMOGLOBIN 33.4 pg (27.0-33.3); MEAN CORPUSCULAR HGB CONC 33.4 g/dL (28.7-35.3); MEAN CORPUSCULAR VOLUME 100.1 fL (80.8-98.7); MEAN PLATELET VOLUME 7.9 fL (6.7-11.0); MONOCYTES ABSOLUTE AUTO 0.4 x10-3/uL (0.0-1.2); MONOCYTES PERCENT AUTO 8.9 % (5.5-15.2); NEUTROPHILS PERCENT AUTO 66.1 % (40.3-71.8); PLATELET COUNT,PLT 208 x10(3)uL (117-477); RED CELL DISTRIBUTION WIDTH 15.1 % (12.4-15.0); WHITE BLOOD CELL COUNT,WBC 4.6 x10-3/uL (3.2-10.1)
[2024-05-05 10:17] LABS: A/G RATIO 0.8; ALANINE AMINOTRANSFERASE,ALT 21 U/L (12-36); ALBUMIN 2.5 g/dL (3.2-4.6); ALKALINE PHOSPHATASE 117 IU/L (56-112); ASPARTATE AMNIOTRANSFERASE,AST 19 IU/L (5-25); BILIRUBIN TOTAL 0.4 mg/dL (0.1-1.3); BLOOD UREA NITROGEN,BUN 23 mg/dL (7-18); BUN/CREATININE RATIO 15.3 (9-20); CALCIUM 9.3 mg/dL (8.6-10.2); CARBON DIOXIDE,CO2 29 mmol/L (21-32); CHLORIDE,CL 109 mmol/L (100-110); CREATININE 1.5 mg/dL (0.70-1.30); EST CRCL DRUG DOSING (CG) 31.53 mL/min; ESTIMATED GFR 45 mL/min (>60); GLUCOSE RANDOM 107 mg/dL (80-116); POTASSIUM,K 3.8 mmol/L (3.5-5.3); PROTEIN TOTAL,TP 5.5 g/dL (6.0-8.0); SODIUM,NA 146 mmol/L (135-145)
[2024-05-05] MEDS: Acetaminophen 650 MG Tab.ER PO SCH ×2 (12:55→20:42)
[2024-05-05] MEDS ORDERED: Diclofenac Sodium 1% Gel 100 GM Tube TOP PRN (17:18)
[2024-05-05 20:21] LABS: BILIRUBIN,URINE NEGATIVE (NEGATIVE); GLUCOSE,URINE NORMAL (NORMAL); KETONES,URINE NEGATIVE (NEGATIVE); LEUKOCYTE ESTERASE,URINE NEGATIVE (NEGATIVE); NITRITE,URINE NEGATIVE (NEGATIVE); OCCULT BLOOD,URINE NEGATIVE (NEGATIVE); PROTEIN,URINE NEGATIVE (NEGATIVE); UROBILINOGEN,URINE NORMAL (NEGATIVE)
[2024-05-05 20:22] LABS: APPEARANCE,URINE CLEAR (CLEAR); COLOR,URINE YELLOW (YELLOW)
[2024-05-05 20:23] LABS: BACTERIA,URINE FEW (NS); RBC,URINE NOT SEEN (0-5); SQUAMOUS EPITHELIAL CELLS,UR FEW (NS,R,O); WBC,URINE 0-5 (0-5)
[2024-05-06 06:04] LABS: BASOPHILS PERCENT AUTO 0.3 % (0.3-3.8); EOSINOPHILS ABSOLUTE AUTO 0.1 x10-3/uL (0.0-0.6); EOSINOPHILS PERCENT AUTO 2.9 % (0.1-6.8); HEMATOCRIT 36.8 % (38.3-50.1); HEMOGLOBIN 12.2 g/dL (12.9-17.7); LYMPHOCYTES ABSOLUTE AUTO 1.3 x10-3/uL (0.5-4.5); LYMPHOCYTES PERCENT AUTO 29.8 % (15.8-45.3); MEAN CORPUSCULAR HEMOGLOBIN 33.2 pg (27.0-33.3); MEAN CORPUSCULAR HGB CONC 33.2 g/dL (28.7-35.3); MEAN CORPUSCULAR VOLUME 100.3 fL (80.8-98.7); MONOCYTES ABSOLUTE AUTO 0.3 x10-3/uL (0.0-1.2); MONOCYTES PERCENT AUTO 7.4 % (5.5-15.2); NEUTROPHILS ABSOLUTE AUTO 2.6 x10-3/uL (1.7-6.9); NEUTROPHILS PERCENT AUTO 59.7 % (40.3-71.8); PLATELET COUNT,PLT 208 x10(3)uL (117-477); RED BLOOD CELL COUNT 3.67 x10(6)uL (3.90-5.90); RED CELL DISTRIBUTION WIDTH 15.2 % (12.4-15.0); WHITE BLOOD CELL COUNT,WBC 4.4 x10-3/uL (3.2-10.1)
[2024-05-06] MEDS: Budesonide 0.5 MG/2 ML Neb Susp INH SCH (09:29)
== END 2024-05-12 13:55 | disposition home or self-care (01) | DRG 948 ==
LOC: FB.MS 09:21
PROVIDERS: ADMIT Family Medicine; ATTEND Internal Medicine
DX: R53.1 Weakness (principal); E87.1 Hypo-osmolality and hyponatremia; E87.0 Hyperosmolality and hypernatremia; F03.94 Unspecified dementia, unspecified severity, with anxiety; I48.91 Unspecified atrial fibrillation; H40.9 Unspecified glaucoma; I12.9 Hypertensive chronic kidney disease with stage 1 through stage 4 chronic kidney disease, or unspecified chronic kidney disease; J44.9 Chronic obstructive pulmonary disease, unspecified; F32.A Depression, unspecified; N18.32 Chronic kidney disease, stage 3b; Z66 Do not resuscitate; Z79.01 Long term (current) use of anticoagulants; Z88.8 Allergy status to other drugs, medicaments and biological substances; Z79.51 Long term (current) use of inhaled steroids; Z79.899 Other long term (current) drug therapy; Z95.5 Presence of coronary angioplasty implant and graft; Z86.16 Personal history of COVID-19; Z98.49 Cataract extraction status, unspecified eye; Z90.79 Acquired absence of other genital organ(s)
CPT/HCPCS: 36415; 51701; 80053; 81001; 85025; 92610-GN; 94150; 94640; 97530-GO; 97530-GP; 99305; 99308; 99315; A9270-GY; C1758

== ENCOUNTER 2024-06-02 09:35 | Inpatient (IN) | payer MEDICARE, BC ==
[2024-06-02 10:12] LABS: HEMATOCRIT 39.6 % (38.3-50.1); HEMOGLOBIN 13.1 g/dL (12.9-17.7); MEAN CORPUSCULAR HEMOGLOBIN 32.2 pg (27.0-33.3); MEAN CORPUSCULAR VOLUME 97.6 fL (80.8-98.7); MEAN PLATELET VOLUME 8.7 fL (6.7-11.0); PLATELET COUNT,PLT 119 x10(3)uL (117-477); RED BLOOD CELL COUNT 4.06 x10(6)uL (3.90-5.90); RED CELL DISTRIBUTION WIDTH 15.9 % (12.4-15.0); WHITE BLOOD CELL COUNT,WBC 7.1 x10-3/uL (3.2-10.1)
[2024-06-02 10:13] LABS: BLOOD UREA NITROGEN,BUN 45 mg/dL (7-18); BUN/CREATININE RATIO 23.7 (9-20); CALCIUM 10.6 mg/dL (8.6-10.2); CARBON DIOXIDE,CO2 27 mmol/L (21-32); CHLORIDE,CL 113 mmol/L (100-110); CREATININE 1.9 mg/dL (0.70-1.30); EST CRCL DRUG DOSING (CG) 25.13 mL/min; ESTIMATED GFR 34 mL/min (>60); GLUCOSE RANDOM 92 mg/dL (80-116); POTASSIUM,K 4.9 mmol/L (3.5-5.3); SODIUM,NA 147 mmol/L (135-145)
[2024-06-02 10:19] LABS: A/G RATIO 0.7; ALANINE AMINOTRANSFERASE,ALT 41 U/L (12-36); ALBUMIN 2.8 g/dL (3.2-4.6); ALKALINE PHOSPHATASE 170 IU/L (56-112); ASPARTATE AMNIOTRANSFERASE,AST 30 IU/L (5-25); BILIRUBIN TOTAL 0.3 mg/dL (0.1-1.3); PROTEIN TOTAL,TP 6.6 g/dL (6.0-8.0)
[2024-06-02 10:26] LABS: D-DIMER QUANTITATIVE 0.49 mg/LFEU (0.0-0.59); INR 0.9 (1.00-1.24); PROTHROMBIN TIME 9.5 sec (9.0-11.1)
[2024-06-02 10:27] LABS: ANISOCYTOSIS FEW; LYMPHOCYTES PERCENT MAN 9 % (13-37); MONOCYTES PERCENT MAN 5 % (4-12); SEG NEUTROPHILS PERCENT MAN 86 % (46-82)
[2024-06-02 10:43] LABS: BILIRUBIN,URINE NEGATIVE (NEGATIVE); GLUCOSE,URINE NORMAL (NORMAL); KETONES,URINE NEGATIVE (NEGATIVE); LEUKOCYTE ESTERASE,URINE NEGATIVE (NEGATIVE); NITRITE,URINE NEGATIVE (NEGATIVE); OCCULT BLOOD,URINE NEGATIVE (NEGATIVE); PROTEIN,URINE NEGATIVE (NEGATIVE); UROBILINOGEN,URINE NORMAL (NEGATIVE)
[2024-06-02 10:44] LABS: APPEARANCE,URINE CLEAR (CLEAR); COLOR,URINE YELLOW (YELLOW)
[2024-06-02] MEDS: Sodium Chloride 0.9% 1,000 ML IV SCH (11:37)
[2024-06-02] MEDS ORDERED: Ondansetron 4 MG/2 ML SDV IV PRN (16:55)
[2024-06-02] MEDS ORDERED: Albuterol/Ipratropium 3.0-0.5 MG/3 ML Neb Soln NEB PRN (17:01)
[2024-06-02] MEDS: Piperacillin/Tazobactam 4.5 GM in Sodium Chloride 0.9% 100 ML IV ONE (18:07)
[2024-06-02] MEDS: Enoxaparin 30 MG/0.3 ML Syringe SUBCUT SCH (18:21)
[2024-06-02] MEDS: Piperacillin/Tazobactam 4.5 GM in Sodium Chloride 0.9% 100 ML IV SCH (22:27)
[2024-06-03 06:24] LABS: HEMATOCRIT 36.9 % (38.3-50.1); HEMOGLOBIN 12.1 g/dL (12.9-17.7); MEAN CORPUSCULAR HGB CONC 32.7 g/dL (28.7-35.3); MEAN CORPUSCULAR VOLUME 97.8 fL (80.8-98.7); MEAN PLATELET VOLUME 8.5 fL (6.7-11.0); PLATELET COUNT,PLT 124 x10(3)uL (117-477); RED BLOOD CELL COUNT 3.78 x10(6)uL (3.90-5.90); RED CELL DISTRIBUTION WIDTH 16.2 % (12.4-15.0)
[2024-06-03 06:34] LABS: A/G RATIO 0.6; ALANINE AMINOTRANSFERASE,ALT 33 U/L (12-36); ALBUMIN 2.3 g/dL (3.2-4.6); ALKALINE PHOSPHATASE 145 IU/L (56-112); ASPARTATE AMNIOTRANSFERASE,AST 25 IU/L (5-25); BILIRUBIN TOTAL 0.5 mg/dL (0.1-1.3); BLOOD UREA NITROGEN,BUN 46 mg/dL (7-18); BUN/CREATININE RATIO 20.9 (9-20); CALCIUM 9.4 mg/dL (8.6-10.2); CARBON DIOXIDE,CO2 26 mmol/L (21-32); ESTIMATED GFR 28 mL/min (>60); GLUCOSE RANDOM 56 mg/dL (80-116); POTASSIUM,K 4.8 mmol/L (3.5-5.3); PROTEIN TOTAL,TP 5.9 g/dL (6.0-8.0); SODIUM,NA 151 mmol/L (135-145)
[2024-06-03 06:39] LABS: CHLORIDE,CL 116 mmol/L (100-110); CREATININE 2.2 mg/dL (0.70-1.30)
[2024-06-03 06:43] LABS: ANISOCYTOSIS FEW; BAND PERCENT MAN 4 % (0-6); LYMPHOCYTES PERCENT MAN 10 % (13-37); MONOCYTES PERCENT MAN 6 % (4-12); SEG NEUTROPHILS PERCENT MAN 80 % (46-82)
[2024-06-03] MEDS: Morphine 2 MG/ML SYRINGE IVPUSH PRN (10:37)
[2024-06-03] MEDS: Sodium Chloride 0.45% 1,000 ML IV SCH (10:50)
[2024-06-03] MEDS ORDERED: Hyoscyamine 0.125 MG Tab.SL PO PRN (16:03)
== END 2024-06-03 16:40 | disposition expired | DRG 193 ==
LOC: FB.ED 09:35 → FB.MS 12:02
PROVIDERS: ADMIT Family Medicine; ATTEND Family Medicine
PROC: 0T9B70Z Drainage of Bladder with Drainage Device, Via Natural or Artificial Opening (ICD-10-PCS; principal; 2024-06-02)
DX: J18.9 Pneumonia, unspecified organism (principal); G93.41 Metabolic encephalopathy; E87.0 Hyperosmolality and hypernatremia; F03.93 Unspecified dementia, unspecified severity, with mood disturbance; F03.94 Unspecified dementia, unspecified severity, with anxiety; N17.9 Acute kidney failure, unspecified; Z66 Do not resuscitate; Z51.5 Encounter for palliative care; J44.9 Chronic obstructive pulmonary disease, unspecified; N18.32 Chronic kidney disease, stage 3b; I12.9 Hypertensive chronic kidney disease with stage 1 through stage 4 chronic kidney disease, or unspecified chronic kidney disease; G47.30 Sleep apnea, unspecified; I48.91 Unspecified atrial fibrillation; T68.XXXA Hypothermia, initial encounter; E86.0 Dehydration; R79.89 Other specified abnormal findings of blood chemistry; R29.90 Unspecified symptoms and signs involving the nervous system; Z88.8 Allergy status to other drugs, medicaments and biological substances; Z79.51 Long term (current) use of inhaled steroids; Z79.899 Other long term (current) drug therapy; Z95.5 Presence of coronary angioplasty implant and graft; Z85.46 Personal history of malignant neoplasm of prostate; Z86.16 Personal history of COVID-19; Z98.49 Cataract extraction status, unspecified eye; Z98.890 Other specified postprocedural states
CPT/HCPCS: 36415; 70450; 71045; 80053; 81003; 83880; 84484; 85025; 85379; 85610; 86140; 87040; 93005; 93010; 99222; 99238; 99284; 99285; J1650; J2270; J2543; J7030